=== PATIENT | female | born 1955 | race Caucasian/White ===

== ENCOUNTER → 2025-04-25 14:30 | Outpatient (CLI) | payer OTHER, SELFPAY ==
[2025-04-25 15:13] LABS: Add Manual Diff / Slide Review NO; Hematocrit 40.7 % (36-46); Hemoglobin 14.0 g/dL (12.0-16.0); Lymphocytes Absolute Auto 1800 /uL (1100-4500); Mean Corpuscular HGB Conc 34.5 % (30-36); Mean Corpuscular Hemoglobin 33.3 PG (26-34); Mean Corpuscular Volume 96.4 fL (80-100); Platelet Count 208 X10^3/uL (150-400)
[2025-04-25 15:42] LABS: Alanine Aminotransferase 16 IU/L (<35); Albumin 4.4 g/dL (3.5-5.0); Albumin Globulin Ratio 1.6 (1.0-2.8); Alkaline Phosphatase 86 U/L (38-126); Blood Urea Nitrogen 14 mg/dL (7-17); Calcium 9.1 mg/dL (8.4-10.2); Carbon Dioxide 26 mmol/L (22-32); Chloride 106 mmol/L (98-107); Estimated Glomerular Filt Rate > 60 mL/min (>60); Globulin 2.8 g/dL (1.7-4.1); Glucose 92 mg/dL (70-99); HEMOLYSIS < 15 (0-50); Potassium 4.1 mmol/L (3.4-5.1); Sodium 139 mmol/L (137-145); Total Protein 7.2 g/dL (6.3-8.2)
[2025-04-25 16:01] LABS: Free T3, Triiodothyronine Free 3.96 pg/mL (2.77-5.27); Free T4, Direct Thyroxine 1.07 ng/dL (0.78-2.19)
[2025-04-25 16:15] LABS: Thyroid Stimulating Hormone 1.07 uIU/mL (0.47-4.68)
[2025-04-25 16:19] LABS: Ferritin 51 ng/mL (11-264)
[2025-04-25 16:34] LABS: Vitamin B12 494 pg/mL (239-931)
[2025-04-27 21:39] LABS: Anti Thyroglobulin Antibody 1.6 IU/mL (0.0-0.9)
== END ==
PROVIDERS: PCP Family Medicine; Referring Provider Naturopath; Visit Provider Naturopath
DX: Z00.00 Encounter for general adult medical examination without abnormal findings (principal); E06.3 Autoimmune thyroiditis; R71.8 Other abnormality of red blood cells; R53.83 Other fatigue
CPT/HCPCS: 36415; 80053; 82607; 82728; 84439; 84443; 84481; 85025; 86376; 86800